=== PATIENT | female | born 1935 | race Caucasian/White ===

== ENCOUNTER 2019-01-15 16:33 | Emergency (ER) | payer MEDICARE, MEDICAID ==
[~2019-01-15] VITALS: Ht 152.4 cm; Wt 37.3 kg
[~2019-01-15 16:33] MED LIST: HYDR-4383 PO
[2019-01-15] MEDS ORDERED: morphine 4 MG/ML inj SYRINge IV ONE ×2 (16:50→18:45)
[2019-01-15] MEDS ORDERED: diphenhydrAMINE 50 mg/ml inj IV ONE (17:10)
--- NOTE | 2019-01-15 17:30 | NUR ---
PT LEFT TO CT VIA GURNEY AND TRANSPORT BY STREETSWEEPER OPERATOR
[2019-01-15] MEDS ORDERED: HYDR-3965 PO (18:33)
[2019-01-15 19:07] VITALS: BP 103/57
== END 2019-01-15 19:09 | disposition home or self-care (01) ==
LOC: ER 16:34
DX: S72.111A Displaced fracture of greater trochanter of right femur, initial encounter for closed fracture (principal); F03.90 Unspecified dementia, unspecified severity, without behavioral disturbance, psychotic disturbance, mood disturbance, and anxiety; M19.90 Unspecified osteoarthritis, unspecified site; M81.0 Age-related osteoporosis without current pathological fracture; Z88.2 Allergy status to sulfonamides; Z88.5 Allergy status to narcotic agent; Z79.899 Other long term (current) drug therapy; W18.39XA Other fall on same level, initial encounter; Y93.89 Activity, other specified; Y92.89 Other specified places as the place of occurrence of the external cause; Y99.8 Other external cause status
CPT/HCPCS: 72170; 73552; 96374; 96376; 99284; J1200; J2270